=== PATIENT | male | born 1995 | race Caucasian/White ===

== ENCOUNTER 2020-07-22 18:38 | Emergency (ER) | payer SELFPAY ==
[~2020-07-22] VITALS: Ht 182.9 cm; Wt 95.5 kg
[2020-07-22 18:52] VITALS: TEMP 98.9
[2020-07-22] MEDS ORDERED: MOTRIN 800800 MG/TAB PO (21:32)
[2020-07-22] MEDS ORDERED: CRUTCHES MC (21:32)
[2020-07-22 21:53] VITALS: BP 130/77; PULSE 89
== END 2020-07-22 21:54 | disposition home or self-care (01) ==
LOC: COL.ER 18:38
DX: S93.401A Sprain of unspecified ligament of right ankle, initial encounter (principal); S80.11XA Contusion of right lower leg, initial encounter; X50.1XXA Overexertion from prolonged static or awkward postures, initial encounter; Y93.01 Activity, walking, marching and hiking; Y99.0 Civilian activity done for income or pay

== ENCOUNTER 2020-09-06 09:00 | Outpatient (RCR) | payer OTHER ==
[~2020-09-06 09:00] MED LIST: CRUTCHES MC; MOTRIN 800800 MG/TAB PO
== END 2020-09-23 11:33 | disposition home or self-care (01) ==
LOC: WSPT 09:00
DX: S93.401A Sprain of unspecified ligament of right ankle, initial encounter (principal)